=== PATIENT | female | born 1995 | race Caucasian/White ===

== ENCOUNTER 2023-05-01 08:00 | Outpatient (NON) | payer BC, SELFPAY | END 2023-05-01 08:01 | disposition home or self-care (01) | LOC: ANHLAB 05-02 14:18 | PROVIDERS: PCP Family Medicine Adolescent Medicine; Visit Provider Nurse Practitioner | DX: D48.5 Neoplasm of uncertain behavior of skin (principal) | CPT/HCPCS: 88305; 88312 ==

== ENCOUNTER 2023-06-09 12:54 | Outpatient (NON) | payer BC, SELFPAY | END 2023-06-09 12:55 | disposition home or self-care (01) | LOC: ANHLAB 06-11 12:57 | PROVIDERS: PCP Family Medicine Adolescent Medicine; Visit Provider Surgery Plastic and Reconstructive Surgery | DX: D48.5 Neoplasm of uncertain behavior of skin (principal) | CPT/HCPCS: 88305 ==

== ENCOUNTER 2023-09-04 10:34 | Emergency (ER) | payer BC, SELFPAY ==
[2023-09-04 11:02] VITALS: BP 121/76; PULSE 71; RESP 16; TEMP 37; O2SAT 100
--- NOTE | 2023-09-04 11:16 | ED.GENADULT ---
HPI - General Adult General Chief complaint: Upper Respiratory Infection Stated complaint: Sinus Source: patient, RN notes reviewed and old records reviewed Mode of arrival: ambulatory Limitations: no limitations History of Present Illness HPI narrative: 27-year-old female presents to [facility] with complaints body aches, chills, congestion, cough this started Friday evening. Patient taking Tylenol. Patient is 10 weeks . Patient denies chest pain, shortness of breath, weakness, dizziness. MD complaint: congestion, myalgia Onset (ago): day(s) (3-4) Related Data Home Medications Medication Instructions Recorded Confirmed No Home Medications 09/04/23 09/04/23 Allergies Allergy/AdvReac Type Severity Reaction Status Date / Time No Known Allergies Allergy Verified 09/04/23 10:54 Review of Systems Constitutional: Constitutional: Reports no additional constitutional complaints, Reports body ache(s), Reports chills, Reports fatigue, Denies fever(s) and Denies headache(s) Eyes: Eyes: Reports no additional eye complaints and Denies blurry vision ENT: Reports system reviewed and no additional complaints, except as documented, Denies vertigo, Denies dizziness, Denies ear discharge, Denies otalgia, Denies facial pain, Denies headache(s), Reports nasal congestion, Denies nasal discharge, Denies sinus pain, Denies sinus pressure and Denies sore throat Cardiovascular: Cardiovascular: Reports no additional cardiovascular complaints, Denies chest pain, Denies chest pain at rest, Denies rapid heart rate and Denies dyspnea Respiratory: Respiratory: Reports no additional respiratory complaints, Denies chest congestion, Reports cough, Denies pain on inspiration, Denies pain with cough and Denies dyspnea Gastrointestinal: Gastrointestinal: Denies abdominal pain, Denies diarrhea, Denies nausea and Denies vomiting Integumentary/Breasts: Skin/Breast: Denies rash Neurologic: Reports system reviewed and no additional complaints, except as documented, Denies vertigo, Denies dizziness and Denies headache(s) Endocrine: Endocrine: Denies fatigue PMFSH Family History Family History Other Hypertension Social History Social History Smoking status: Never smoker Alcohol intake: current Comments At the time of my signature, I reviewed and agree with the nursing past medical, surgical, social, and family history. There is no relevant family history pertinent to the patient complaint. Exam Const: General: cooperative, no acute distress, ill appearing acutely and well nourished Nutritional Appearance: well nourished Orientation/consciousness: patient oriented x3 Limitations: no limitations HENMT: Head: normal to inspection and normocephalic Ears: external ears normal, TM's normal bilaterally, mastoids normal and Abnormal EAC present Face/Nose/Sinus: normal facial exam Face and sinus: normal facial exam Mouth: Yes Normal oral and palatal mucosa present, Yes oropharynx normal and Yes moist mucous membranes Throat: posterior oropharynx normal, tonsils normal, uvula midline and no uvular edema Eyes: General: appearance normal, both eyes and all related structures Sclera: sclerae normal Pupils: Equal, round and reactive pupils present Resp: Effort & Inspection: normal respiratory effort, able to speak in complete sentences, no audible wheezes, no cough, no respiratory distress and no retractions Auscultation: clear to auscultation bilaterally, no crackles, no rales, no rhonchi and no wheezes Cardio: Rate: regular rate Rhythm: regular rhythm Skin: General skin exam: normal color and no rashes or lesions noted Neuro: General: patient oriented x3 Cranial nerves: Yes Equal, round and reactive pupils present Psych: Appearance: grossly normal Mental Status: mental status grossly normal Speech and movement: Katharina
== END 2023-09-04 11:35 | disposition home or self-care (01) ==
PROVIDERS: Emergency Provider Registered Nurse
DX: B34.9 Viral infection, unspecified (principal); Z20.822 Contact with and (suspected) exposure to COVID-19
CPT/HCPCS: 87081; 87426; 87804; 87880; 99213; G0463